=== PATIENT | male | born 1995 | race Caucasian/White ===

== ENCOUNTER 2016-11-27 16:24 | Emergency (ER) | payer OTHER ==
[~2016-11-27] VITALS: Ht 172.7 cm; Wt 79.4 kg
[2016-11-27 16:34] VITALS: TEMP 36.9; Ht 172.7 cm; Wt 79.4 kg
--- NOTE | 2016-11-27 17:14 | DIAGNOSTIC IMAGING REPORT ---
RIGHT HAND MIN 3 VIEWS ROUTINE CLINICAL HISTORY: Right hand pain following injury. COMPARISON: None FINDINGS: No acute fracture is identified. Alignment of the right hand is anatomic. There may be soft tissue swelling along the medial aspect the right fifth metacarpal. Carpal bones are intact. IMPRESSION: No acute fracture or dislocation of the right hand. Electronically signed by: Killian Cardona M.D. 11/27/2016 5:13 PM Dictated Date/Time: 11/27/2016 5:11 PM
--- NOTE | 2016-11-27 17:34 | EMERGENCY ROOM VISIT NOTE ---
History First contact with patient: 16:40 Chief Complaint: HAND PAIN/INJURY Stated Complaint: R WRIST/HAND PAIN History of Present Illness The patient is a 21 year old male who presents to the Emergency Room with complaints of right hand and wrist pain after punching something hard last night. He does not recall what it was. He denies being in any altercation. The patient reports pain of the third through fifth knuckles, on her aspect of the hand and a bandlike sensation around the wrist that is worsened with movement. He denies any pain extending into the elbow. The patient is right- hand-dominant, and rates his pain a 7 out of 10. Review of Systems 10 system review was performed and was negative except for pertinent positives and negatives as indicated in history of present illness Past Medical/Surgical History Medical Problems: (1) No significant past medical history Surgical Problems: (1) No history of previous surgery Family History No significant family history Social History Smoking Status: Current Every Day Smoker Alcohol Use: occasionally Marital Status: single Occupation Status: [employer] student Current/Historical Medications No Active Prescriptions or Reported Meds Allergies Coded Allergies: No Known Allergies (Unverified , 11/27/16) Physical Exam Vital Signs Date Time Temp Pulse Resp B/P Pulse Ox O2 Delivery O2 Flow Rate FiO2 11/27/16 16:34 36.9 78 16 120/76 98 Room Air Physical Exam CONSTITUTIONAL: Healthy and well nourished. Alert and oriented X 3 with positive affect. Patient does not appear in any acute distress. HEENT: Normocephalic, atraumatic. Pupils equal, round and reactive. NECK: Full active range of motion without discomfort. MUSCULOSKELETAL: Examination of the right hand shows edema and abrasions to the third, fourth and fifth MCP regions. He also is tender through the fourth and fifth metacarpals, and generally about the entire wrist. He has no focal anatomic snuffbox tenderness. Flexion and extension of his wrist worsens the pain. No discomfort in the forearm or elbow with pronation and supination. Capillary refill is less than 2 seconds. INTEGUMENTARY: No rash or other significant dermatologic conditions noted. NEUROLOGIC: Right hand and fingers are sensory intact. Medical Decision & Procedures ER Provider Diagnostic Interpretation: My interpretation of right hand x-rays does not show any acute fractures or dislocations. Radiologist report is as follows: RIGHT HAND MIN 3 VIEWS ROUTINE CLINICAL HISTORY: Right hand pain following injury. COMPARISON: None FINDINGS: No acute fracture is identified. Alignment of the right hand is anatomic. There may be soft tissue swelling along the medial aspect the right fifth metacarpal. Carpal bones are intact. IMPRESSION: No acute fracture or dislocation of the right hand. ED Course Patient history and physical exam were performed. Nurse's notes were reviewed. The patient refused any analgesics on initial exam. X-rays of the right hand does not show any acute fractures or dislocations. The patient was encouraged to intermittently apply ice to the hand and wrist region. A wrist lacer was also applied. The patient was instructed to perform flexion and extension exercises of the fingers and wrist to prevent stiffness. Ibuprofen and Tylenol in alternating fashion as needed for additional pain relief. Patient was dispensed an ice pack. He was instructed to follow-up with [facility] for any persistent pain. The patient was happy with plan of care, voice understanding of all discharge instructions, and rated his pain a 3 out of 10 at the conclusion of my exam. Medical Decision Impression Primary Impression: Right wrist sprain Additional Impression: Contusion of right hand Departure Information Prescriptions No Active Prescriptions or Reported Meds Referrals No Doctor, Assigned (PCP) Patient Instructions My [facility] Problem Qualifiers Primary Impression: Right wrist sprain Encounter type: initial encounter Qualified Codes: S63.501A - Unspecified sprain of right wrist, initial encounter Additional Impression: Contusion of right hand Encounter type: initial encounter Qualified Codes: S60.221A - Contusion of right hand, initial encounter
[2016-11-27 17:45] VITALS: BP 100/72; PULSE 75; O2SAT 98
== END 2016-11-27 17:46 | disposition home or self-care (01) ==
LOC: C.EDB 16:25 → C.EDD 17:46
DX: S60.221A Contusion of right hand, initial encounter (principal); S63.501A Unspecified sprain of right wrist, initial encounter; W22.8XXA Striking against or struck by other objects, initial encounter; F17.200 Nicotine dependence, unspecified, uncomplicated